=== PATIENT | female | born 1990 | race Caucasian/White ===

== ENCOUNTER 2020-05-20 12:16 | Emergency (ER) | payer BC, SELFPAY ==
--- NOTE | ~2020-05-20 | US_ITS ---
US OB <=14 wk fetus w TV DATE: 05/20/2020 17:21 INDICATION: Nausea and vomiting. 6 week gravid patient. TECHNIQUE: Real-time imaging via transabdominal and transvaginal approaches COMPARISON: None FINDINGS: The uterus measures 8.3 cm height, 4.6 cm AP and 5.5 cm transverse dimension. An intrauteri ne normally shaped gestational sac is identified. [place]-rump length measurement of 1.16 cm is consistent with estimated gestational age of 7 weeks 2 da ys +/- 5 days; SUE by crown-rump length would be 01/04/2021, compared to 01/08/2021 by LMP. heart rate of 154 bpm. The right ovary measures 2.5 x 1.6 x 2.6 cm. The left ovary measures 2.3 x 1.8 x 2.3 cm. IMPRESSION: Estimated gestational age of 7 weeks 2 days +/- 5 days; SUE is 01/04/2021 Reviewed, dictated and finalized at [facility] Reviewed, dictated and finalized at [facility].
[2020-05-20 12:21] VITALS: BP 131/60; PULSE 86; RESP 16; TEMP 37; O2SAT 98
[2020-05-20 12:39] LABS: Basophils Percent Auto 0.2 % (0.2-1.2); Eosinophils Absolute Auto 0.1 K/mm3 (0-0.3); Eosinophils Percent Auto 1.1 % (0-4.4); Hematocrit 40.3 % (37.0-47.0); Hemoglobin 13.5 g/dL (12.0-15.0); Immature Granulocyte Absolute 0.04 K/mm3 (0.00-0.031); Immature Granulocyte Percent A 0.4 % (0-0.5); Lymphocytes Absolute Auto 2.45 K/mm3 (0.9-3.2); Lymphocytes Percent Auto 23.4 % (18.3-44.2); Mean Corpuscular HGB Conc 33.5 g/dl (32-36); Mean Corpuscular Volume 89.6 fl (80-100); Mean Platelet Volume 9.9 fl (7.4-10.4); Monocytes Absolute Auto 0.6 K/mm3 (0.1-0.6); Monocytes Percent Auto 5.6 % (2.6-8.5); Neutrophils Absolute Auto 7.3 K/mm3 (1.3-6.7); Neutrophils Percent Auto 69.3 % (45.5-73.1); Platelet Count Result 288 k/mm3 (150-375); Red Cell Distribution Width 11.9 % (11.5-14.5); White Blood Count 10.5 K/mm3 (4.5-10.0)
[2020-05-20] MEDS: diphenhydrAMINE HCl INJ 50 MG/ML VIAL 25 MG IV PUSH (12:44)
[2020-05-20] MEDS: SODIUM CHLORIDE 0.9% IV 1,000 ML 999 ML IV CONT ×2 (12:44→14:03)
[2020-05-20] MEDS: METOCLOPRAMIDE HCL INJ 10 MG/2 ML VIAL IV PUSH (12:44)
[2020-05-20 12:51] LABS: Alanine Aminotransferase 16 U/L (4-35); Albumin Level 4.3 g/dL (3.5-5.1); Alkaline Phosphatase 52 U/L (38-126); Anion Gap 9 mmol/L (8-16); Aspartate Amino Transferase 22 U/L (14-36); Bilirubin,Total 0.5 mg/dL (0.2-1.3); Blood Urea Nitrogen 12 mg/dL (7-17); Calcium 8.8 mg/dL (8.4-10.2); Carbon Dioxide 22 mmol/L (22-30); Chloride 106 mmol/L (98-107); Estimated CRCL calculation 101 ml/min; Estimated Glomerular Filt Rate > 60; Glucose 85 mg/dL (65-105); Lipase 256 U/L (23-300); Potassium 3.9 mmol/L (3.4-5.0); Sodium 137 mmol/L (137-145)
--- NOTE | 2020-05-20 13:11 | ED.NAVMDI ---
HPI - Nausea/Vomiting/Diarrhea General Chief complaint: Nausea/Vomiting/Diarrhea Stated complaint: 6 wks , vomiting Time Seen by Provider: 05/20/20 12:27 Source: patient Mode of arrival: ambulatory Limitations: no limitations History of Present Illness HPI Narrative: This is a 29-year-old G1, P0, about 6 weeks by LMP who presents to the emergency department for nausea and vomiting. Reports over the last couple of days she has not been able to keep much down. Reports she has been trying huma lozenges with little relief. Reports she has an appointment to see Dr. Barbosa in a couple of weeks. She has not had an ultrasound yet this . Denies fever, abdominal pain, dysuria, pelvic cramping, or vaginal bleeding. Related Data Home Medications Medication Instructions Recorded Confirmed clonazepam 0.5 mg PO BID 05/20/20 Allergies Allergy/AdvReac Type Severity Reaction Status Date / Time No Known Allergies Allergy Mild Verified 05/20/20 12:23 Review of Systems Review of Systems: Narrative: CONSTITUTIONAL: Denies fever GASTROINTESTINAL: Reports nausea and vomiting. Denies abdominal pain GENITOURINARY: Denies dysuria or hematuria. All systems reviewed & are unremarkable except as noted in HPI and below PMFSH Social History Social History (Updated 05/20/20 @ 13:12 by Karina Mares PA-C) Smoking status: Never smoker Substance use: never Exam Narrative: Exam Narrative: GENERAL: Well-appearing, well-nourished, and in no acute distress. HEAD: Normocephalic, atraumatic. EYES: EOMI. CHEST: Clear to auscultation. No respiratory distress. No wheezes rales or rhonchi HEART: Regular rate and rhythm. No murmur heard. Normal peripheral pulses. ABDOMEN: Soft, nontender, nondistended, normal active bowel sounds. EXTREMITIES: Normal range of motion. No edema. SKIN: Warm, dry, no rash. NEURO: No focal deficits. Alert and oriented x3. PSYCH: Normal mood and affect Course Consultations Consultation #1: Spoke with Dr. Melendez about patient and work-up. Patient will be instructed on Unisom and vitamin B6 and given Reglan as needed for nausea. She is to follow-up at her scheduled appointment. Date: 05/20/20 Time: 18:07 Vital Signs Vital signs: Vital Signs Temperature 98.6 F 05/20/20 12:21 Pulse Rate 86 05/20/20 12:21 Respiratory Rate 16 05/20/20 12:21 Blood Pressure 131/60 05/20/20 12:21 Pulse Oximetry 98 05/20/20 12:21 Temperature 98.6 F 05/20/20 12:21 Pulse Rate 86 05/20/20 12:21 Respiratory Rate 16 05/20/20 12:21 Blood Pressure 131/60 05/20/20 12:21 Pulse Oximetry 98 05/20/20 12:21 MDM - Nausea/Vomiting/Diarrhea MDM Narrative Medical decision making narrative: Patient presents to the emergency department for nausea and vomiting and first trimester . She is afebrile and nontoxic-appearing. Denies any abdominal pain or pelvic cramping. Denies any vaginal bleeding. CBC with mild leukocytosis to 10.5. Metabolic panel without concerning findings. Lipase is normal. UA with 4-6 white blood cells and 1+ bacteria, also with moderate squamous epithelial cells. Patient is asymptomatic. This will be sent for culture. Obstetrics ultrasound shows positive IUP with estimated gestational age of 7 weeks and [address] Melendez about patient and work-up. Patient will be instructed on Unisom and vitamin B6 and given Reglan as needed for nausea. She is to follow-up at her scheduled appointment. Patient is stable and felt appropriate for further outpatient evaluation. She was given warnings to return to ER Lab Data Attestation: I reviewed the patient's lab results. Result diagrams: 05/20/20 12:32 05/20/20 12:32 Labs: Lab Results 05/20/20 05/20/20 05/20/20 Range/Units 12:32 12:32 12:32 WBC 10.5 H (4.5-10.0) K/mm3 RBC 4.50 (4.2-5.4) M/mm3 Hgb 13.5 (12.0-15.0) g/dL Hct 40.3 (37.0-47.0) % MCV 89.6 (8
--- NOTE | 2020-05-20 13:49 | PC.NURSE ---
pt states is feeling some better. remains unable to urinate.
[2020-05-20 14:21] LABS: Add Urine Microscopic? YES; Appearance Urine Cloudy (Clear); Bacteria Urine 1+ /hpf; Bilirubin Urine Negative (Negative); Blood Urine Negative (Negative); Color Urine Yellow (Yellow); Glucose Urine UA Negative (Negative); Ketones Urine 2+ mg/dL (Negative); Leukocyte Esterase Ur Negative LEU/UL (Negative); Mucus Urine Heavy /lpf; Nitrate Urine Negative (Negative); Protein Urine Negative (Negative); Specific Grav Ur 1.024 (1.001-1.035); Squamous Epithelial Cell Urine Moderate /hpf (Few); Urobilinogen Urine Negative mg/dL (<2.0)
--- NOTE | 2020-05-20 15:24 | PC.NURSE ---
ua specimen collected. 2nd liter ns hung and infusing without difficulty. family remains at bedside.
--- NOTE | 2020-05-20 16:20 | PC.NURSE ---
pt states nausea is returning. additional study ordered.
--- NOTE | 2020-05-20 16:39 | PC.NURSE ---
Called lab to add on UC
--- NOTE | 2020-05-20 18:09 | PC.NURSE ---
all results back. waiting further orders.
== END 2020-05-20 18:38 | disposition home or self-care (01) ==
PROVIDERS: Physician Assistant; Emergency Provider Emergency Medicine; PCP Physician Assistant
DX: O21.9 Vomiting of pregnancy, unspecified (principal); Z3A.01 Less than 8 weeks gestation of pregnancy
CPT/HCPCS: 36415; 76801; 76817; 80053; 81001; 83690; 84702; 85025; 87086; 96361; 96374; 96375; 99284; J1200; J2765; J7030

== ENCOUNTER → 2020-06-14 07:55 | Outpatient (CLI) | payer BC, SELFPAY ==
--- NOTE | ~2020-06-14 | US_ITS ---
EXAMINATION: US OB <= 14 weeks fetus DATE: 06/14/2020 08:13 INDICATION: Establish dating of during first trimester TECHNIQUE: Real-time pelvic ultrasound utilizing both a transvaginal and transabdominal probe was pe rformed. The interpreting radiologist was not present for the study. COMPARISON: 05/20/2020 FINDINGS: The uterus measures 10.9 x 6.2 x 8.9 cm. There is an intrauterine gestational sac. A single fetus is identified. The crown rump length measures 4.0 cm, which is concordant within two days of previously estimated gestational age of 11 weeks and 1 days based on earliest ultrasound [facility]. heart motion is identified measuring 168 beats per minute (bpm) by M-mode Doppler. The bilateral ovaries are not visualized. There is no free fluid in the pelvis. IMPRESSION: 1. Single living fetus with heart rate of 168 bpm. 2. [place]-rump length of 4.0 cm which is concordant with previously estimated gestational age of 11 we eks 1 day(s) with ultrasound estimated date of delivery (SUE) of 01/02/2021. Reviewed, dictated and finalized at location [facility]. IMPRESSION: 1. Single living fetus with heart rate of 168 bpm. 2. [place]-rump length of 4.0 cm which is concordant with previously estimated ge stational age of 11 weeks 1 day(s) with ultrasound estimated date of delivery ( SUE) of 01/02/2021.
== END ==
PROVIDERS: Visit Provider Nurse Practitioner
DX: Z36.87 Encounter for antenatal screening for uncertain dates (principal); Z3A.11 11 weeks gestation of pregnancy
CPT/HCPCS: 76801

== ENCOUNTER → 2020-08-15 14:46 | Outpatient (CLI) | payer BC, SELFPAY ==
--- NOTE | ~2020-08-15 | US_ITS ---
EXAMINATION: US OB >= 14 weeks Fetus DATE: 08/15/2020 15:36 INDICATION: Assess anatomy during second trimester . TECHNIQUE: Multiple obstetric sonographic images performed. FINDINGS: There is a single living fetus in vertex presentation. The placenta is anterior with caudal margin 3 .2 cm from the cervical os. Amniotic fluid volume is subjectively normal. heart rate of 153 be ats per minute. The following anatomy was identified as normal: Ventricles, choroid plexus, falx and cava septum pellucidum Cerebellum and cisterna magna Nuchal fold Upper lip Spine Heart Diaphragm Stomach Kidneys Bladder 3 vessel cord and cord insertion Bilateral upper and lower extremities including hands and feet The following biometric data were obtained: BPD: 4.8 cm -> 20 weeks 3 days Head circumference: 17.4 cm -> 20 weeks 0 days Abdominal circumference: 14.7 cm -> 20 weeks 0 days Femur length: 3.1 cm -> 19 weeks 4 days These measurements are concordant. Head circumference to abdominal circumference ratio: 1.18 (normal range 1.08-1.25). Estimated weight: 317 g (+/-) 48 g. or 11 oz. (+/-) 2 oz. IMPRESSION: 1. Single living fetus with vertex presentation with heart rate of 153 bpm. 2. Estimated weight is 53rd percentile by Hadlock criteria when 01/04/2021 is used as the SUE. Please correlate with clinical information or earlier ultrasounds for most accurate SUE. 3. Normal survey. Reviewed, dictated and finalized at location [facility]. [facility]KER [facility] IMPRESSION: 1. Single living fetus with vertex presentation with heart rate of 153 b pm. 2. Estimated weight is 53rd percentile by Hadlock criteria when is used as the SUE. Please correlate with clinical information or earlier ult rasounds for most accurate SUE. 3. Normal survey.
== END ==
PROVIDERS: PCP Physician Assistant; Visit Provider Obstetrics & Gynecology Gynecology
DX: Z34.92 Encounter for supervision of normal pregnancy, unspecified, second trimester (principal); Z3A.20 20 weeks gestation of pregnancy
CPT/HCPCS: 76805

== ENCOUNTER → 2020-11-29 11:19 | Outpatient (CLI) | payer BC, SELFPAY ==
--- NOTE | ~2020-11-29 | US_ITS ---
US OB follow up DATE: 11/29/2020 11:43 INDICATION: Size greater than dates TECHNIQUE: Real-time imaging via transabdominal approach. Doppler analysis. COMPARISON: 09/04/2020 obstetrical ultrasound FINDINGS: Live single intrauterine gestation, fetus in breech presentation. movement is demonst rated. Anterior placenta, lower margin 10.7 cm above the cervix. Subjectively normal amount and a fluid. Amniotic fluid index measures 15.7 cm, between 5th percentile 8.1 cm and 95th percentile 24.8 cm. Biparietal diameter 8.87 cm; 35 weeks 6 days Head circumference 32.19 cm; 36 weeks 2 days Abdominal circumference 31.1 cm; 35 weeks Femur length 6.69 cm; 34 weeks 3 days Composite age by Keller formula based on the current measurements would be 35 weeks 3 days +/- 2 we eks 3 days, with SUE of 12/31/2020, compared to 01/04/2021 by LMP. Estimated weight is 2592 +/- 388.8 g. Estimated weight-GP: 53.4% Femur length/biparietal diameter 75.40, within normal range of 71.0-87.0 Head circumference/abdominal airframe and powerplant mechanic was 1.03, within normal range of 0.93-1.10 Femur length/abdominal circumference 21.49, within normal range of 20.00-24.00 Femur length/head circumference 20.78, within normal range of 20.10-22.21 IMPRESSION: Amniotic fluid index: 15.7 cm Composite age by Keller formula based on the current measurements would be 35 weeks 3 days +/- 2 we eks 3 days, with USE of 12/31/2020, compared to 01/04/2021 by LMP. Estimated weight is 2592 +/- 388.8 g. Reviewed, dictated and finalized at [facility]. Reviewed, dictated and finalized at [facility]. IMPRESSION: Amniotic fluid index: 15.7 cm Composite age by Keller formula based on the current measurements would be 35 weeks 3 days +/- 2 weeks 3 days, with SUE of 12/31/2020, compared to 01/04/2021 by LMP. Estimated weight is 2592 +/- 388.8 g.
== END ==
PROVIDERS: Visit Provider Obstetrics & Gynecology Gynecology
DX: O36.5930 Maternal care for other known or suspected poor fetal growth, third trimester, not applicable or unspecified (principal); Z3A.35 35 weeks gestation of pregnancy
CPT/HCPCS: 76816

== ENCOUNTER 2020-12-12 07:32 | Outpatient (CLI) | payer BC, SELFPAY ==
[2020-12-12] VITALS (17 sets, daily range): BP systolic 121–122; BP diastolic 80–82; PULSE 92–118; O2SAT 96–99
[2020-12-12] MEDS: TERBUTALINE SULFATE 1 MG/ML VIAL 0.25 MG SUB-Q (08:07)
--- NOTE | 2020-12-12 08:20 | PM.OP ---
Procedure Note - Brief Procedure Note - Brief Date of procedure: 12/12/20 Pre-op diagnosis: External version breech Post-op diagnosis: same Procedure performed: failed external version Description of procedure: NST reactive. Under u/s guidance, attempted external cephalic version done. head in RUQ and breech deep into pelvis. No movement of breech out of pelvis. Attempted clockwise and counterclockwise with no movement of head or breech. Procedure determined to be futile and stopped. Will schedule csection for 39 wks. NST before DC. Anesthesia: none Surgeon: Marleny Barbosa MD Estimated blood loss (mL): 0 Drains: No Packing: No Pathology: none sent Complications: No immediate complications Condition: stable Disposition: floor
--- NOTE | 2020-12-12 09:06 | PC.NURSE ---
Dr. Barbosa updated with NST following external version, including variable deceleration. Ok to discharge patient to home.
== END 2020-12-12 09:18 | disposition home or self-care (01) ==
LOC: ANHOBOP 07:38 → ANHOBPP 07:40
PROVIDERS: PCP Physician Assistant; Visit Provider Obstetrics & Gynecology Gynecology
DX: O32.1XX0 Maternal care for breech presentation, not applicable or unspecified (principal)
CPT/HCPCS: 59412; 99199; J3105

== ENCOUNTER 2020-12-30 07:50 | Inpatient (IN) | payer BC, SELFPAY ==
--- NOTE | 2020-12-20 13:10 | PC.NURSE ---
VERIFIED WITH OR SCHEDULE AND PATIENT--C/S ON 01/01/21 AT 1200 PATIENT GIVEN REQUISITION FOR LAB DRAW ON 12/31/20
[2020-12-30] VITALS (51 sets, daily range): BP systolic 86–121; BP diastolic 50–70; PULSE 59–92; RESP 12–19; TEMP 36.2–37.1; O2SAT 96–100; BMI 31.4
--- NOTE | 2020-12-30 08:23 | WPDHPUPDATE1 ---
History and Physical Update Update Date/Time: 12/30/20 08:23 History and Physical has been reviewed, including an updated exam of the patient. There are NO changes in the patient's condition. Risks, benefits, and alternatives have been discussed and questions answered. Patient agrees to proceed with procedure.
--- NOTE | 2020-12-30 08:23 | PM.IMHP ---
H&P: HPI History of Present Illness Date/Time: 12/30/20 08:23 Chief Complaint: labor Narrative: 30 yo G1 at 38 5/7 wks here with labor. Known breech was verified with bedside u/s. Prior attempted version was unsuccessful. labs O+; Rubella nonimmune; RPR -; HBSAg -; HIV -; GBS -. Plan to proceed with primary csection. 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 Surgical History Surgical History (Updated 12/30/20 @ 08:30 by Marleny Barbosa MD) Hx of shoulder surgery age 10 Family History Family History (Updated 12/20/20 @ 12:38 by Anil Smalls RN) Grandparent Cancer Diabetes mellitus Social History Social History (Updated 05/20/20 @ 13:12 by Karina Mares PA-C) Smoking status: Never smoker Substance use: never Spiritual care concerns: No Meds Home Medications and Allergies Home Medications Medication Instructions Recorded Confirmed Type clonazepam 0.5 mg PO BID 05/20/20 12/12/20 History Vitamin 1 tablet PO DAILY 12/12/20 12/12/20 History Allergies Allergy/AdvReac Type Severity Reaction Status Date / Time No Known Allergies Allergy Mild Verified 12/20/20 12:34 Vital Signs Vital Signs - 24 hr 12/30/20 08:21 Pulse Oximetry 97 Exam Const: General: No comfortable (breathing through contractions) Resp: Effort & Inspection: normal respiratory effort Cardio: Rate: regular rate Rhythm: regular rhythm GI: GI Palp: No abdominal tenderness and Yes Other GI palpation findings present (fundal height 38 cm) : Manual OB Exam: dilated 4 cm Assessment and Plan Assessment and plan (1) Breech presentation: Code(s): O32.1XX0 - Maternal care for breech presentation, not applicable or unspecified Status: Acute (2) Active labor: Status: Acute (3) 38 weeks gestation of : Code(s): Z3A.38 - 38 weeks gestation of Status: Acute
[2020-12-30 08:31] LABS: Basophils Percent Auto 0.2 % (0.2-1.2); Eosinophils Percent Auto 0.1 % (0-4.4); Hematocrit 33.8 % (37.0-47.0); Hemoglobin 10.8 g/dL (12.0-15.0); Immature Granulocyte Absolute 0.17 K/mm3 (0.00-0.031); Immature Granulocyte Percent A 0.9 % (0-0.5); Lymphocytes Absolute Auto 1.77 K/mm3 (0.9-3.2); Lymphocytes Percent Auto 9.8 % (18.3-44.2); Mean Corpuscular Hemoglobin 27.3 pg (26-34); Mean Corpuscular Volume 85.6 fl (80-100); Mean Platelet Volume 10.4 fl (7.4-10.4); Monocytes Absolute Auto 0.8 K/mm3 (0.1-0.6); Monocytes Percent Auto 4.4 % (2.6-8.5); Neutrophils Absolute Auto 15.3 K/mm3 (1.3-6.7); Neutrophils Percent Auto 84.6 % (45.5-73.1); Platelet Count Result 284 k/mm3 (150-375); Red Blood Count 3.95 M/mm3 (4.2-5.4); Red Cell Distribution Width 12.7 % (11.5-14.5); White Blood Count 18.1 K/mm3 (4.5-10.0)
--- NOTE | 2020-12-30 08:33 | WPDANESEPPF ---
Anes - Initial Pre Proc Eval Procedure: Operation Date: 12/30/20 09:00 Proposed Procedures p Primary Section - Marleny Barbosa MD Date/Time: 12/30/20 08:33 Surgeon: Marleny Barbosa MD Pre Op Diagnosis: Bleeding Patient Data Age: 30 Gender: F Height: 1.63 m Weight: 83 kg Last Vital Signs Pulse 83 12/30/20 08:31 BP 121/70 12/30/20 08:31 Pulse Ox 100 12/30/20 08:31 Allergies Allergy/AdvReac Type Severity Reaction Status Date / Time No Known Allergies Allergy Mild Verified 12/20/20 12:34 Home Medications Medication Instructions Recorded Confirmed Type clonazepam 0.5 mg PO BID 05/20/20 12/12/20 History Vitamin 1 tablet PO DAILY 12/12/20 12/12/20 History Laboratory Tests 12/30/20 12/30/20 08:23 08:23 WBC 18.1 K/mm3 H K/mm3 (4.5-10.0) RBC 3.95 M/mm3 L M/mm3 (4.2-5.4) Hgb 10.8 g/dL L g/dL (12.0-15.0) Hct 33.8 % L % (37.0-47.0) MCV 85.6 fl fl (80-100) MCH 27.3 pg pg (26-34) MCHC 32.0 g/dl g/dl (32-36) RDW 12.7 % % (11.5-14.5) Plt Count 284 k/mm3 k/mm3 (150-375) MPV 10.4 fl fl (7.4-10.4) Immature Gran % (Auto) 0.9 % H % (0-0.5) Neut % (Auto) 84.6 % H % (45.5-73.1) Lymph % (Auto) 9.8 % L % (18.3-44.2) [place] % (Auto) 4.4 % % (2.6-8.5) Eos % (Auto) 0.1 % % (0-4.4) Baso % (Auto) 0.2 % % (0.2-1.2) Lymph # (Auto) 1.77 K/mm3 K/mm3 (0.9-3.2) [place] # (Auto) 0.8 K/mm3 H K/mm3 (0.1-0.6) Eos # (Auto) 0.0 K/mm3 K/mm3 (0-0.3) Baso # (Auto) 0.0 K/mm3 K/mm3 (0.0-0.1) Abs Immat Gran (auto) 0.17 K/mm3 H K/mm3 (0.00-0.031) Absolute Neuts (auto) 15.3 K/mm3 H K/mm3 (1.3-6.7) Absolute Nucleated RBC 0.0 K/mm3 K/mm3 (0.0-0.012) Nucleated RBC % 0.0 % % (0.0-0.2) RPR Pending Patient hx anesthesia problems: none Family hx anesthesia problems: none [facility] Past Medical History Medical History (Updated 12/30/20 @ 08:32 by Marleny Barbosa MD) Hyperekplexia Skull fracture x 3 hx subdural hematoma and subarachnoid hemorrhage no residual deficits Surgical History Surgical History (Updated 12/30/20 @ 08:30 by Marleny Barbosa MD) Hx of shoulder surgery age 10 Family History Family History (Updated 12/20/20 @ 12:38 by Anil Smalls RN) Grandparent Cancer Diabetes mellitus Social History Social History (Updated 05/20/20 @ 13:12 by Karina Mares PA-C) Smoking status: Never smoker Substance use: never Spiritual care concerns: No Anes - Eval Final PreProcedure Day of Procedure 12/30/20 08:33 Patient weight: obese Heart: regular rate and rhythm Lungs: clear to auscultation and normal air movement Airway: Mallampati scale class II Neurological: alert and oriented Last oral intake: >/= 8 hours ASA classification: II Emergent: no Anesthetic plan: proceed Anesthesia type and monitoring: regional spinal Informed Consent: The patient's anesthetic plan and its attendant risks and benefits were discussed with the patient/family/POA. Questions were solicited and answers provided to the satisfaction of the patient/family/POA.
--- NOTE | 2020-12-30 08:34 | LDADM ---
This patient, Marquita Orellana, was admitted to Labor/Delivery/Recovery 120 on 12/30/20 at 07:50. Plans for labor, pain management and were discussed with patient. Patient/family oriented to hospital policies and general routines including ID bracelet, bed and alarms, visiting hours, pain management, procedures, bathroom and other care routines, personal items, smoking policy, room service/diet and guest tray routines, security routines, and visiting hours. Patient/Family are encouraged to report perceived risks to care and to ask questions if they do not understand what they are told or what they should do. See OBIX for further documentation.
--- NOTE | 2020-12-30 09:27 | PM.PROC ---
Procedure Note - Detailed Date of procedure: 12/30/20 Pre-op diagnosis: Bleeding Labor 38 5/7 wks Breech Post-op diagnosis: same Procedure performed: primary LTCS Description of procedure: The patient was taken to the operating room and placed under spinal anesthesia in the dorsal supine position with a leftward tilt. The patient was prepped and draped in usual sterile fashion. Once anesthesia was deemed adequate a Pfannenstiel skin incision was made with a scalpel and carried down to the fascia which was nicked in the midline. Fascial incision is extended laterally using Jalloh scissors. Ochsner is used to tent the fascia which was then dissected off using sharp and blunt dissection. This the rectus muscles are in the midline the peritoneum was tented and entered with Metzenbaum scissors. The incision was extended with blunt traction. The bladder blade is placed and the vesicouterine peritoneum grasped with a Peon. The peritoneum was incised with Metzenbaum sent extended laterally the bladder flap was created digitally the lower uterine segment was incised in a transverse fashion with the scalpel. The incision was extended with blunt traction. The 's breech was deep in the pelvis and had to be brought up into the incision. The breech was delivered and then the merchandising assistant applied fundal pressure and the was delivered to the scapula. The was rotated and the right arm delivered spontaneously the was rotated the left arm is splinted and delivered. The infant is extended on the abdomen and the head delivered. The cord was clamped and cut the infant handed to the waiting nursery nurse. The placenta is removed using manual traction. The uterus is cleared of all clots and debris and exteriorized. The uterine incision was closed using 0 Monocryl in a running locked fashion. Same suture was used to imbricate. Good hemostasis is noted. The cul-de-sac is irrigated and the uterus is returned to the abdomen. The gutters are irrigated. The incision was again inspected and noted to be hemostatic. The fascia was then closed using 0 Vicryl in a running fashion. The subcuticular tissues are irrigated made hemostatic using Bovie cautery. The skin incision is closed using 4 0 Vicryl in a subcuticular fashion. Dermaflex was placed over the incision. Sponge, instrument, and needle counts are correct per the OR staff. Patient was taken to recovery in stable condition. Anesthesia: spinal Surgeon: Marleny Barbosa MD Estimated blood loss (mL): 350 Drains: Yes (caldera) Packing: No Pathology: none sent Complications: No immediate complications Condition: stable Disposition: PACU Findings: female with breech deep in pelvis; Apgars 9/9 weighing6#11oz; normal appearing tubes, ovaries, and uterus
--- NOTE | 2020-12-30 09:32 | PM.OBDSVD ---
DS: Admitting Diagnosis Admitting Diagnosis Admitting Diagnosis: labor 38 5/7 wks; breech DS: Discharge Diagnosis Discharge Diagnosis (1) 38 weeks gestation of : Code(s): Z3A.38 - 38 weeks gestation of Status: Acute (2) Active labor: Status: Acute (3) Breech presentation: Code(s): O32.1XX0 - Maternal care for breech presentation, not applicable or unspecified Status: Acute OB - DS: Summary OB Procedures : Ultrasound and External version (failed) OB Procedures Intrapartum: low cervical, transverse OB Procedures: : None Peripartum Data Delivery Method: Section Procedures: Procedures Operation Date: 12/30/20 09:00 <No data on this case meets the specified criteria> complications: none Status at Discharge Functional status at discharge: independent ambulation Overall status at discharge: patient is progressing back to baseline Time Spent with Patient Time attestation: Total time spent providing and/or coordinating discharge services: DS: Data Data Completed and Pending Labs on day of discharge: Labs from last 24 hours 12/30/20 12/30/20 08:23 08:23 WBC 18.1 H RBC 3.95 L Hgb 10.8 L Hct 33.8 L MCV 85.6 MCH 27.3 MCHC 32.0 RDW 12.7 Plt Count 284 MPV 10.4 Immature Gran % (Auto) 0.9 H Neut % (Auto) 84.6 H Lymph % (Auto) 9.8 L [place] % (Auto) 4.4 Eos % (Auto) 0.1 Baso % (Auto) 0.2 Lymph # (Auto) 1.77 [place] # (Auto) 0.8 H Eos # (Auto) 0.0 Baso # (Auto) 0.0 Abs Immat Gran (auto) 0.17 H Absolute Neuts (auto) 15.3 H Absolute Nucleated RBC 0.0 Nucleated RBC % 0.0 RPR Pending Discharge Plan Discharge Attending physician on discharge: Marleny Barbosa Discharging Clinician: Marleny Barbosa Anticipated Discharge Date/Time: 01/02/21 09:33 Patient Disposition: Home, Self-Care Activity: may shower, may drive after 2 weeks and pelvic rest Diet: regular Wound Care Instructions: incision open to air Discharge Instructions: Education: Mom and Baby Guide Given to: Mother Follow-Up: Call your delivering provider's office for an appointment to be seen in: 1 Week Mom and baby should come to the [facility] for the follow-up appointment. Appointment Date/Time:Tuesday, January 05, 2021 at 11:00 am What to expect at your follow-up visit: Blood Pressure Check Physical Assessment Call [phone] if you are unable to keep your appointment time. BREAST CARE: * Wear a snug supportive bra. * For engorgement discomfort: Bottle Feeding: * May apply ice packs EPISIOTOMY/PERINEAL CARE: * Until bleeding stops, use your matilda bottle after urinating * Change your pad frequently throughout the day * You may take sitz baths several times a day (fill your bathtub with warm water and soak for 20 minutes.) Do NOT bathe in the water * No tub baths until seen by your physician - You may shower ACTIVITY: * Rest as much as possible. * Do not exercise or lift anything heavier than your baby (such as laundry or other children.) * Avoid stairs or driving as much as possible. * Do not put anything into the vagina. No douching, tampons, or sexual activity until seen by physician. NOTIFY PHYSICIAN IF YOU HAVE ANY QUESTIONS OR IF ANY OF THE FOLLOWING SYMPTOMS OCCUR: * If your incision becomes red, swollen, or more painful than what you have experienced in the hospital. * If your vaginal bleeding becomes foul smelling. * If your vaginal bleeding becomes more heavy than a period or if your bleeding changes from pink to bright red. However, you may pass an occasional walnut-sized clot once or twice for the first week . * If you experience a sharp, shooting pain in your calves. * If you discover a hard, reddened area on your breast or if you experience flu-like symptoms. DIET: * Eat regular, well
[2020-12-30] MEDS: OXYTOCIN 30 UNITS/NS 500 ML 30 UNITS/500 ML BAG 125 UNITS IV CONT (10:30)
[2020-12-30] MEDS: LORATADINE 10 MG TABLET PO (10:34)
[2020-12-30] MEDS: KETOROLAC 30 MG/ML VIAL (*BKC) IV PUSH (11:11)
--- NOTE | 2020-12-30 11:50 | PC.NURSE ---
Patient transferred to post room #1150 via stretcher. Support person present. Oriented to unit, room, information board, rooming in, admission packet and security measures. Patient verbalizes understanding.
[2020-12-30] MEDS: DEXTROSE 5%/0.45% SOD CHL 1,000 ML 125 ML IV CONT (15:12)
[2020-12-30] MEDS: clonazePAM (*CRX) 0.5 MG TABLET PO (20:33)
[2020-12-30] MEDS: IBUPROFEN 600 MG TABLET PO (20:38)
[2020-12-30] MEDS: HYDROcodone/acetaminophen (*CRX) 5-325 MG TABLET 1 TAB PO (20:39)
[2020-12-31 05:40] VITALS: BP 109/55; PULSE 90; RESP 16; TEMP 36.3; O2SAT 100
[2020-12-31] MEDS: IBUPROFEN 600 MG TABLET PO ×3 (05:43→19:51)
[2020-12-31] MEDS: HYDROcodone/acetaminophen (*CRX) 5-325 MG TABLET 1 TAB PO ×4 (05:43→19:51)
[2020-12-31 06:05] LABS: Basophils Percent Auto 0.1 % (0.2-1.2); Eosinophils Absolute Auto 0.1 K/mm3 (0-0.3); Eosinophils Percent Auto 0.4 % (0-4.4); Hematocrit 27.1 % (37.0-47.0); Hemoglobin 8.4 g/dL (12.0-15.0); Immature Granulocyte Absolute 0.18 K/mm3 (0.00-0.031); Immature Granulocyte Percent A 1.3 % (0-0.5); Lymphocytes Absolute Auto 2.29 K/mm3 (0.9-3.2); Lymphocytes Percent Auto 16.6 % (18.3-44.2); Mean Corpuscular Volume 87.1 fl (80-100); Mean Platelet Volume 10.4 fl (7.4-10.4); Monocytes Percent Auto 7.4 % (2.6-8.5); Neutrophils Absolute Auto 10.3 K/mm3 (1.3-6.7); Neutrophils Percent Auto 74.2 % (45.5-73.1); Platelet Count Result 232 k/mm3 (150-375); Red Blood Count 3.11 M/mm3 (4.2-5.4); Red Cell Distribution Width 12.7 % (11.5-14.5); White Blood Count 13.8 K/mm3 (4.5-10.0)
[2020-12-31 07:25] LABS: Rapid Plasma Reagin Non-Reactive (NonReactive)
[2020-12-31 07:35] VITALS: BP 106/66; PULSE 75; RESP 18; TEMP 36.8; O2SAT 100
--- NOTE | 2020-12-31 08:52 | WPDANLDPN2 ---
Anes-Prog Note L&D Date/Time: 12/31/20 08:52 Comfortable throughout: section Neuraxial method: spinal Epidural/Spinal procedure site: clean & non-tender Neuro status: Neuro function grossly intact. Cardiovascular status: normal Vital Signs: Last Vital Signs Temp 36.3 C L 12/31/20 05:40 Pulse 90 12/31/20 05:40 Resp 16 12/31/20 05:40 BP 109/55 L 12/31/20 05:40 Pulse Ox 100 12/31/20 05:40 Pain score (VAS): no c/o pain I/O: Intake & Output 12/30/20 12/31/20 12/31/20 23:59 07:59 15:59 Intake Total 1700 400 Output Total 1050 1800 Balance 650 -1400 Post-procedural complaints: none Patient feedback: Patient satisfied with anesthetic care.
--- NOTE | 2020-12-31 08:53 | WPDANLDNPN2 ---
Anes-Prog Note L&D-Neuraxial Date/Time: 12/31/20 08:53 Neuraxial medications: intrathecal PF morphine Opiod-related complaints: pruritis Patient feedback: Patient satisfied with post-operative pain management.
[2020-12-31] MEDS: DOCUSATE SODIUM 100 MG CAPSULE PO (09:25)
[2020-12-31] MEDS: MULTIVIT/MIN/PREN/FOL AC/IRON TABLET 1 TAB PO (09:25)
[2020-12-31] MEDS: POLYSACCHARIDE IRON COMPLEX 150 MG CAPSULE PO (09:25)
[2020-12-31] MEDS: clonazePAM (*CRX) 0.5 MG TABLET PO ×2 (09:25→20:27)
[2020-12-31] MEDS: LORATADINE 10 MG TABLET PO (09:26)
[2020-12-31] MEDS: SIMETHICONE 80 MG TAB.CHEW PO ×2 (09:28→13:21)
--- NOTE | 2020-12-31 10:51 | PC.NURSE ---
Addendum entered by Zoran Bird RN 12/31/20 10:53: actual note occurred at 0800 Original Note: PT introductions made and plan of care discussed per post op c section, pain management, bottle feeding, daily care activities. PT received instructions per one to one discussion and mom baby care guide. Pt and spouse both recipients of education through out the shift. PT verbalized understanding of such care.
[2020-12-31 19:45] VITALS: BP 120/71; PULSE 116; RESP 16; TEMP 37.2; O2SAT 100
[2021-01-01] MEDS: IBUPROFEN 600 MG TABLET PO ×3 (02:54→17:26)
[2021-01-01] MEDS: SIMETHICONE 80 MG TAB.CHEW PO ×4 (02:54→21:46)
[2021-01-01] MEDS: HYDROcodone/acetaminophen (*CRX) 5-325 MG TABLET 1 TAB PO ×6 (02:54→21:46)
--- NOTE | 2021-01-01 07:38 | PM.OBPNVD ---
OB - PN: Subj Subjective Date/time seen: 01/01/21 07:38 Patient comments: no complaints and pain well controlled baby status: bottle feeding well OB - PN: Obj Data Labs CBC & Chem 7: 12/31/20 05:48 OB - PN A/P Plan day: 2 Plan: routine care Time Spent With Patient Time: Total time spent is greater than 50% in coordination of care (as documented) at patient's floor/unit and/or counseling patient: Exam Narrative: Exam Narrative: inc c/d/i : Bimanual exam- vagina & uterus: other (Uterus firm, nt @U)
[2021-01-01 07:45] VITALS: BP 111/68; PULSE 99; RESP 16; TEMP 37.3; O2SAT 100
[2021-01-01] MEDS: MULTIVIT/MIN/PREN/FOL AC/IRON TABLET 1 TAB PO (07:47)
[2021-01-01] MEDS: DOCUSATE SODIUM 100 MG CAPSULE PO ×2 (07:47→17:26)
[2021-01-01] MEDS: POLYSACCHARIDE IRON COMPLEX 150 MG CAPSULE PO ×2 (07:47→17:26)
[2021-01-01] MEDS: clonazePAM (*CRX) 0.5 MG TABLET PO ×2 (07:47→19:44)
[2021-01-01 17:25] VITALS: TEMP 36.9
[2021-01-01 19:48] VITALS: BP 120/72; PULSE 93; RESP 16; TEMP 37.1; O2SAT 98
[2021-01-02] MEDS: HYDROcodone/acetaminophen (*CRX) 5-325 MG TABLET 1 TAB PO (03:29)
[2021-01-02] MEDS: IBUPROFEN 600 MG TABLET PO (03:29)
[2021-01-02] MEDS: POLYSACCHARIDE IRON COMPLEX 150 MG CAPSULE PO (07:00)
[2021-01-02] MEDS: SIMETHICONE 80 MG TAB.CHEW PO (07:00)
[2021-01-02] MEDS: DOCUSATE SODIUM 100 MG CAPSULE PO (07:00)
[2021-01-02] MEDS: HYDROcodone/acetaminophen (*CRX) 10-325 MG TABLET 1 TAB PO (07:00)
[2021-01-02] MEDS: MULTIVIT/MIN/PREN/FOL AC/IRON TABLET 1 TAB PO (07:00)
[2021-01-02 07:40] VITALS: BP 115/76; PULSE 94; RESP 16; TEMP 37.2; O2SAT 98
[2021-01-02] MEDS: clonazePAM (*CRX) 0.5 MG TABLET PO (09:12)
[2021-01-02 10:37] VITALS: PULSE 94; RESP 16; O2SAT 98
--- NOTE | 2021-01-02 16:43 | PM.OBPNVD ---
OB - PN: Subj Subjective Date/time seen: 01/02/21 16:43 doing well no cimplaints desires home. OB - PN: Obj Data Labs CBC & Chem 7: 12/31/20 05:48 OB - PN A/P Assessment and Plan (1) Breech presentation: Code(s): O32.1XX0 - Maternal care for breech presentation, not applicable or unspecified Status: Acute Assessment and Plan: continue with pp care. Time Spent With Patient Time: Total time spent is greater than 50% in coordination of care (as documented) at patient's floor/unit and/or counseling patient: Exam Narrative: Exam Narrative: incision c/d/i ff below umbilicus
[2021-01-05 11:24] VITALS: BP 114/79; PULSE 98; RESP 16; TEMP 37; O2SAT 99
== END 2021-01-02 11:25 | disposition home or self-care (01) | DRG 788 ==
LOC: ANHLDR 09:33 → ANHOB2 14:02 → ANHLDR 01-05 10:48 → ANHOB2 01-05 10:48
PROVIDERS: Admitting Provider Obstetrics & Gynecology Gynecology; PCP Physician Assistant; Visit Provider Obstetrics & Gynecology
DX: O32.1XX0 Maternal care for breech presentation, not applicable or unspecified (principal); Z37.0 Single live birth; Z3A.38 38 weeks gestation of pregnancy; O99.214 Obesity complicating childbirth; E66.9 Obesity, unspecified
CPT/HCPCS: 36415; 85025; 86592; 86850; 86900; 86901; A9270; J0131; J1100; J1885; J2274; J2370; J2405; J2590; J3010

== ENCOUNTER → 2021-04-01 08:43 | Outpatient (CLI) | payer BC, SELFPAY ==
--- NOTE | ~2021-04-01 | US_ITS ---
US breast BI limited 04/01/2021 09:06 Indication: Palpable bilateral breast masses Procedure: High-resolution Limited bilateral breast ultrasound Comparison: No prior studies for comparison. Findings: There are multiple bilateral breast cysts corresponding to the areas of palpable concern, l argest in the periareolar location of the right breast at 10-11:00 measuring 1.7 cm. Largest on the l eft at 12:00 near the arterial measuring 2 cm. No suspicious solid masses are identified. Impression: 1: Multiple bilateral breast cysts. No sonographic evidence for malignancy. BI-RADS CATEGORY 2 - BENIGN FINDINGS Reviewed, dictated and finalized at location A. Impression: 1: Multiple bilateral breast cysts. No sonographic evidence for malignancy. BI-RADS CATEGORY 2 - BENIGN FINDINGS
== END ==
PROVIDERS: PCP Physician Assistant; Visit Provider Nurse Practitioner
DX: N60.02 Solitary cyst of left breast (principal); N60.01 Solitary cyst of right breast
CPT/HCPCS: 76642

== ENCOUNTER 2021-06-27 12:46 | Emergency (ER) | payer BC, SELFPAY ==
[2021-06-27 14:03] VITALS: BP 157/136; PULSE 76; RESP 16; TEMP 37.1; O2SAT 100
[2021-06-27] MEDS: SODIUM CHLORIDE 0.9% IV 2,000 ML 999 ML IV CONT (14:48)
[2021-06-27] MEDS: ONDANSETRON HCL ODT 4 MG TABLET PO (14:57)
[2021-06-27 15:06] LABS: Basophils Percent Auto 0.4 % (0.2-1.2); Eosinophils Percent Auto 0.3 % (0-4.4); Hematocrit 42.9 % (37.0-47.0); Hemoglobin 14.1 g/dL (12.0-15.0); Immature Granulocyte Absolute 0.04 K/mm3 (0.00-0.031); Immature Granulocyte Percent A 0.4 % (0-0.5); Lymphocytes Percent Auto 22.5 % (18.3-44.2); Mean Corpuscular HGB Conc 32.9 g/dl (32-36); Mean Corpuscular Hemoglobin 29.3 pg (26-34); Mean Corpuscular Volume 89.2 fl (80-100); Mean Platelet Volume 9.4 fl (7.4-10.4); Monocytes Absolute Auto 0.8 K/mm3 (0.1-0.6); Monocytes Percent Auto 7.5 % (2.6-8.5); Neutrophils Absolute Auto 7.4 K/mm3 (1.3-6.7); Neutrophils Percent Auto 68.9 % (45.5-73.1); Platelet Count Result 275 k/mm3 (150-375); Red Blood Count 4.81 M/mm3 (4.2-5.4); Red Cell Distribution Width 13.9 % (11.5-14.5); White Blood Count 10.7 K/mm3 (4.5-10.0)
[2021-06-27 15:15] VITALS: BP 102/69; PULSE 87; RESP 14; TEMP 36.8; O2SAT 100
[2021-06-27 15:20] LABS: Alanine Aminotransferase 15 U/L (4-35); Albumin Level 4.7 g/dL (3.5-5.1); Alkaline Phosphatase 63 U/L (38-126); Anion Gap 11 mmol/L (8-16); Aspartate Amino Transferase 20 U/L (14-36); Bilirubin,Total 0.5 mg/dL (0.2-1.3); Blood Urea Nitrogen 10 mg/dL (7-17); Calcium 9.3 mg/dL (8.4-10.2); Carbon Dioxide 26 mmol/L (22-30); Chloride 103 mmol/L (98-107); Estimated CRCL calculation 119 ml/min; Estimated Glomerular Filt Rate > 60; Glucose 86 mg/dL (65-110); Potassium 4.1 mmol/L (3.4-5.0); Sodium 140 mmol/L (137-145)
--- NOTE | 2021-06-27 15:44 | ED.GENADULT ---
HPI - General Adult General Chief complaint: Nausea/Vomiting/Diarrhea Stated complaint: 8 weeks preg, N/V Time Seen by Provider: 06/27/21 13:15 Source: patient and family Mode of arrival: ambulatory Limitations: no limitations History of Present Illness HPI narrative: Patient 30 years old white female, 8 , been nauseated for the last few weeks, got worse with vomiting over the last 4 days, yesterday patient was not able to keep anything down. Patient denies any fever, chills, abdominal pain or urinary symptoms. Patient is 2, para 1, 0 patient reports having similar symptoms with her 1st lasted for the 1st 3 months. Related Data Home Medications Medication Instructions Recorded Confirmed clonazepam 0.5 mg PO BID 05/20/20 12/30/20 Allergies Allergy/AdvReac Type Severity Reaction Status Date / Time No Known Allergies Allergy Mild Verified 06/27/21 14:08 Review of Systems Review of Systems: CONSTITUTIONAL: Denies fever, chills, or sweats. EYES: Denies visual changes, redness, or discharge. ENT: Denies rhinorrhea, congestion, sore throat, or otalgia. CARDIOVASCULAR: Denies chest pain, palpitations, or edema. RESPIRATORY: Denies cough or dyspnea. GASTROINTESTINAL: Denies abdominal pain, nausea, vomiting, or diarrhea. GENITOURINARY: Denies dysuria or hematuria. SKIN: Denies rash or itching. MUSCULOSKELETAL: Denies back pain, joint pain, or myalgia. NEUROLOGIC: Denies headache, numbness, or weakness. PSYCHIATRIC: Denies anxiety or depression. PMFSH Past Medical History Medical History Hyperekplexia Skull fracture x 3 hx subdural hematoma and subarachnoid hemorrhage no residual deficits Surgical History Surgical History Hx of shoulder surgery age 10 Family History Family History Grandparent Cancer Diabetes mellitus Social History Social History Smoking status: Never smoker Substance use: never Spiritual care concerns: No Exam Narrative: General appearance: Well-developed, well-nourished Skin: Normal color Head: Normocephalic, nontraumatic Eyes: Clear conjunctiva ENT: Oropharynx normal, ears normal, nose normal Neck: Supple, nontender Chest and respiratory: Airway patent, no respiratory distress, no accessory muscle use Heart: Regular rate/rhythm Abdomen: Soft, nontender, no organomegaly, quiet bowel sounds Vascular: Normal peripheral pulses, normal capillary refill. Musculoskeletal: Normal range of motion, nontender back Neurologic: Alert and oriented ?3, GRIEVANCE AND APPEALS COORDINATOR is normal as tested, no gross motor deficit Course Course Emergency Course: Stable Vital Signs Vital signs: Vital Signs Temperature 37.1 C 06/27/21 14:03 Pulse Rate 76 06/27/21 14:03 Respiratory Rate 16 06/27/21 14:03 Blood Pressure 157/136 H 06/27/21 14:03 Pulse Oximetry 100 06/27/21 14:03 Temperature 37.1 C 06/27/21 14:03 Pulse Rate 76 06/27/21 14:03 Respiratory Rate 16 06/27/21 14:03 Blood Pressure 157/136 H 06/27/21 14:03 Pulse Oximetry 100 06/27/21 14:03 Medical Decision Making [facility] Narrative Medical decision making narrative: Hyperemesis gravidarum is my concern. Labs ordered to rule out the possibility of electrolyte imbalance, UA to rule out the possibility of urinary tract infection. Differential Diagnosis Differential Diagnosis: Hyperemesis gravidarum, electrolyte imbalance, urinary tract infection Vital Signs Vital Signs: Vital Signs Temperature 37.1 C 06/12
[2021-06-27 17:34] LABS: Add Urine Microscopic? YES; Appearance Urine Clear (Clear); Bacteria Urine Trace /hpf; Bilirubin Urine Negative (Negative); Blood Urine Negative (Negative); Color Urine Yellow (Yellow); Glucose Urine UA Negative (Negative); Ketones Urine 2+ mg/dL (Negative); Leukocyte Esterase Ur Negative LEU/UL (Negative); Mucus Urine Moderate /lpf; Nitrate Urine Negative (Negative); Protein Urine 1+ mg/dL (Negative); Specific Grav Ur 1.026 (1.001-1.035); Squamous Epithelial Cell Urine Few /hpf (Few); Urobilinogen Urine Negative mg/dL (<2.0); WBC Urine 0-3 /hpf
[2021-06-27 18:33] VITALS: BP 106/78; PULSE 80; RESP 14; TEMP 36.9; O2SAT 97
== END 2021-06-27 18:35 | disposition home or self-care (01) ==
PROVIDERS: Emergency Provider Emergency Medicine; PCP Physician Assistant
DX: O21.0 Mild hyperemesis gravidarum (principal); Z3A.08 8 weeks gestation of pregnancy; O99.891 Other specified diseases and conditions complicating pregnancy; Q89.8 Other specified congenital malformations
CPT/HCPCS: 36415; 80053; 81001; 85025; 96360; 96361; 99283; A9270; J7030

== ENCOUNTER → 2021-07-07 10:48 | Outpatient (CLI) | payer BC, SELFPAY ==
--- NOTE | ~2021-07-07 | US_ITS ---
EXAMINATION: US OB <= 14 weeks fetus DATE: 07/07/2021 11:10 INDICATION: First trimester dating TECHNIQUE: Real-time pelvic transabdominal and transvaginal ultrasound was performed. COMPARISON: None. FINDINGS: The uterus measures 9.9 x 5.9 x 7.2 cm. There is an intrauterine gestational sac. There is a 1.4 x 0.4 x 0.8 cm hypoechoic area adjacent to the gestational sac. A yolk sac is identified. Feta l heart motion is identified measuring 171 beats per minute (bpm) by M-mode Doppler. The crown rump length measures 2.3 cm , which correlates with an estimated gestational age of 9 weeks and 0 day (s) (+/-) 6 day(s). The right ovary is not visualized however no right adnexal abnormality is seen. The left ovary measur es 1.9 x 1.3 x 1.1 cm. There is normal vascular flow in the left ovary. There is no free fluid in the pelvis. IMPRESSION: 1. Live intrauterine with an estimated gestational age of 9 weeks and 0 day(s) (+/-) 6 day( s) and an estimated delivery date of 02/09/2022. 2. Small subchorionic hematoma. Reviewed, dictated and finalized at location A. IMPRESSION: 1. Live intrauterine with an estimated gestational age of 9 weeks and 0 day(s) (+/-) 6 day(s) and an estimated delivery date of 02/09/2022. 2. Small subchorionic hematoma.
== END ==
PROVIDERS: Visit Provider Obstetrics & Gynecology Gynecology
DX: Z36.87 Encounter for antenatal screening for uncertain dates (principal); Z3A.09 9 weeks gestation of pregnancy; O36.8911 Maternal care for other specified fetal problems, first trimester, fetus 1
CPT/HCPCS: 76801

== ENCOUNTER → 2021-07-21 08:50 | Outpatient (CLI) | payer BC, SELFPAY ==
--- NOTE | ~2021-07-21 | US_ITS ---
US OB limited 07/21/2021 09:24 Indication: Follow-up subchorionic hematoma Procedure: High-resolution Limited obstetrical ultrasound Comparison: Ultrasound dated 07/07/2021 Findings: There is a single living intrauterine with heart rate of 164 BPM. There is a small subchorionic hematoma measuring 11 x 15 x 6 mm. Amniotic fluid is subjectively normal. Impression: 1: Single living intrauterine . 2: Small subchorionic hematoma. Reviewed, dictated and finalized at location A. CTOR OF EXTENSION WORK Impression: 1: Single living intrauterine . 2: Small subchorionic hematoma.
== END ==
PROVIDERS: Visit Provider Obstetrics & Gynecology Gynecology
DX: O36.8911 Maternal care for other specified fetal problems, first trimester, fetus 1 (principal); Z3A.11 11 weeks gestation of pregnancy
CPT/HCPCS: 76815

== ENCOUNTER → 2021-08-18 08:48 | Outpatient (CLI) | payer BC, SELFPAY ==
--- NOTE | ~2021-08-18 | US_ITS ---
EXAMINATION: US OB limited DATE: 08/18/2021 09:11 INDICATION: Subchorionic hematoma, second trimester TECHNIQUE: Real-time ultrasound of the pelvis was performed. The interpreting radiologist was not pre sent for the study. COMPARISON: 07/21/2021 FINDINGS: There is a single living fetus in breech presentation. The placenta is fundal and 4 cm from the internal cervical os. No persistent subchorionic hemorrhage is identified. cardiac activit y and movement are noted. heart rate is 146 beats per minute (bpm). The amniotic fluid in dex is subjectively normal. IMPRESSION: 1. Single living fetus in breech presentation. 2. No persistent subchorionic hematoma identified. Reviewed, dictated and finalized at location A. ESS RACING HANDICAPPER
== END ==
PROVIDERS: Visit Provider Nurse Practitioner
DX: O36.8911 Maternal care for other specified fetal problems, first trimester, fetus 1 (principal); Z3A.09 9 weeks gestation of pregnancy
CPT/HCPCS: 76815

== ENCOUNTER → 2021-09-17 11:17 | Outpatient (CLI) | payer BC, SELFPAY ==
--- NOTE | ~2021-09-17 | US_ITS ---
EXAMINATION: US OB /maternal detail EXAM DATE: 09/17/2021 11:49 INDICATION: Anatomy and growth. 2nd trimester. TECHNIQUE: Pelvic obstetrical transabdominal sonogram was performed by a technologist. There are mu ltiple grayscale and Doppler images available for interpretation. Comparison is made to prior examina tion from 08/18/2021. FINDINGS: There is a single fetus identified in transverse variable presentation with a heart rate of 144 beats per minute. The placenta is located in the left fundal position. There is no sonographic evidence of retroplacental hemorrhage identified. There is subjectively expected amount of amniotic f luid. Placental margin to internal cervical os distance is 6.6 cm. BIOMETRIC DATA: Biparietal diameter (BPD): 4.7 cm ----------------> 20 weeks 1 day. Head circumference (HC): 17.3 cm ----------------> 19 weeks 6 days. Abdominal circumference (AC): 15.7 cm ----------> 20 weeks 6 days. Femur length (FL): 3.2 cm --------------------------> 20 weeks 0 days. These measurements are concordant. HC/AC ratio is 1.10 (The 5th -- 95th percentile range is 1.07-1.25. Estimated weight is 349 g +/- 52 g. This is the 95th percentile when the currently reported cl inical gestation age 19 weeks 2 days, clinical estimated date of delivery (SUE-OPE) 02/09 is used. Fet al estimated gestational age based on measurements from this exam is 20 weeks 2 days, with an estimat ed date of delivery (SUE-AUA) 02/02. ANATOMIC SURVEY: The following anatomy is identified and is sonographically normal in appearance: Cerebral ventricles Cavum septum pellucidum Cerebellum Cisterna magna Nuchal fold CTL-spine Four-chamber heart Cardiac outflow tracts Diaphragm Stomach Kidneys Bladder Three-vessel cord Cord insertion Extremities Nose/lips IMPRESSION: 1. Single fetus in transverse variable presentation with heart rate 144 beats per minute. 2. Estimated weight of 349 grams, 95th percentile using the currently reported clinical gestat ion age of 19 weeks 2 days, SUE(OPE) 02/09. 3. Normal anatomy survey. Reviewed, dictated and finalized at location A. ICAL RESEARCH NURSE IMPRESSION: 1. Single fetus in transverse variable presentation with heart rate 144 beats per minute. 2. Estimated weight of 349 grams, 95th percentile using the currently re ported clinical gestation age of 19 weeks 2 days, SUE(OPE) 02/09. 3. Normal anatomy survey.
== END ==
PROVIDERS: Visit Provider Obstetrics & Gynecology Gynecology
DX: Z34.92 Encounter for supervision of normal pregnancy, unspecified, second trimester (principal); Z3A.20 20 weeks gestation of pregnancy
CPT/HCPCS: 76805

== ENCOUNTER 2022-01-21 09:29 | Outpatient (RCR) | payer BC, SELFPAY ==
[2022-01-21 10:47] VITALS: BP 122/85; PULSE 104
== END 2022-02-19 10:18 | disposition home or self-care (01) ==
LOC: ANHOBOP 09:29
PROVIDERS: PCP Physician Assistant; Visit Provider Obstetrics & Gynecology Gynecology
DX: O36.8330 Maternal care for abnormalities of the fetal heart rate or rhythm, third trimester, not applicable or unspecified (principal); Z3A.37 37 weeks gestation of pregnancy
CPT/HCPCS: 59025

== ENCOUNTER 2022-01-28 07:55 | Observation (INO) | payer BC, SELFPAY ==
[2022-01-28] MEDS: DEXTROSE 5%/LACTATED RINGERS 1,000 ML 100 ML (09:21)
[2022-01-28] MEDS: ONDANSETRON INJ 4 MG/2 ML VIAL (09:22)
--- NOTE | 2022-01-28 09:52 | OBADM ---
This patient, Marquita Orellana, admitted to the OB room Labor/Delivery/Recovery 119 for observation. Patient/family oriented to hospital policies and general routines including ID bracelet, bed and alarms, visiting hours, pain management, procedures, bathroom and other care routines, personal items, smoking policy, room service/diet, and visiting hours. Patient/Family are encouraged to report perceived risks to care and to ask questions if they do not understand what they are told or what they should do.
--- NOTE | 2022-01-31 09:30 | PM.OBTRLD ---
OB - Triage/Final Diagnosis Visit Information Reason for evaluation: threatened labor Comments/Additional reasons for admission: I have assessed the risk for this patient, Marquita Orellana, and determined that she would benefit from observation care.
== END 2022-01-28 11:30 | disposition home or self-care (01) ==
PROVIDERS: Admitting Provider Obstetrics & Gynecology Gynecology; PCP Physician Assistant; Visit Provider Obstetrics & Gynecology Gynecology
DX: O47.9 False labor, unspecified (principal); Z3A.00 Weeks of gestation of pregnancy not specified
CPT/HCPCS: 96374; G0378; G0379; J2405; J7121

== ENCOUNTER 2022-02-01 09:11 | Outpatient (CLI) | payer BC, SELFPAY ==
[2022-02-01 10:07] LABS: Hematocrit 36.1 % (37.0-47.0); Mean Corpuscular HGB Conc 30.5 g/dl (32-36); Mean Corpuscular Volume 88.7 fl (80-100); Mean Platelet Volume 11.2 fl (7.4-10.4); Platelet Count Result 239 k/mm3 (150-375); Red Blood Count 4.07 M/mm3 (4.2-5.4); Red Cell Distribution Width 13.4 % (11.5-14.5); White Blood Count 9.6 K/mm3 (4.5-10.0)
[2022-02-02 13:51] LABS: Rapid Plasma Reagin Non-Reactive (NonReactive)
== END 2022-02-01 09:12 | disposition home or self-care (01) ==
LOC: ANHLAB 09:12
PROVIDERS: PCP Physician Assistant; Visit Provider Obstetrics & Gynecology Gynecology
DX: Z01.818 Encounter for other preprocedural examination (principal)
CPT/HCPCS: 36415; 85027; 86592; 86850; 86900; 86901

== ENCOUNTER 2022-02-02 03:20 | Inpatient (IN) | payer BC, SELFPAY ==
--- NOTE | 2022-01-11 14:10 | PC.NURSE ---
Verified with OR schedule and patient--C/S on 02/02/22 at 0730 Patient given requisition for lab draw on 02/01/22
--- NOTE | 2022-02-01 23:25 | PM.IMHP ---
H&P: HPI History of Present Illness Date/Time: 02/01/22 23:25 Chief Complaint: repeat csection Narrative: The patient is a 31-year-old 2 para 1 admitted 39 weeks for repeat low-transverse section. The patient's current has been complicated by a subchorionic hematoma that did resolve. labs O positive , rubella immune, RPR negative, hepatitis-B surface antigen, negative HIV, negative group B strep negative. Review of Systems Review of Systems: not repeated day of surgery; patient states no changes in status PMFSH Past Medical History Medical History (Updated 02/01/22 @ 23:29 by Marleny Barbosa MD) Hyperekplexia Skull fracture x 3 hx subdural hematoma and subarachnoid hemorrhage no residual deficits Surgical History Surgical History (Updated 02/01/22 @ 23:29 by Marleny Barbosa MD) History of Hx of shoulder surgery age 10 Family History Family History Grandparent Cancer Diabetes mellitus Social History Social History Smoking status: Never smoker Substance use: never Spiritual care concerns: No Meds Home Medications and Allergies Home Medications Medication Instructions Recorded Confirmed Type clonazepam 0.5 mg PO BID 05/20/20 12/30/20 History ondansetron HCl [Zofran] 4 mg PO Q6H PRN #10 tablet 06/27/21 Rx aspirin [Aspirin Low Dose] 81 mg PO DAILY 01/11/22 01/11/22 History prenat.vits,gianni,[id number] 1 tablet PO HS 01/11/22 01/11/22 History Allergies Allergy/AdvReac Type Severity Reaction Status Date / Time No Known Allergies Allergy Mild Verified 01/11/22 13:46 Exam Const: General: healthy appearing and alert Orientation/consciousness: patient oriented x3 GI: GI Palp: Yes Soft to palpation, No Tenderness to palpation present (GI) and No Palpable mass present : External Female Exam: normal external appearance Speculum Exam - Vagina: normal appearance of the vagina and normal vaginal discharge Speculum Exam - Cervix: normal appearance of the cervix Bimanual exam- vagina & uterus: uterine size normal and consistency normal Bimanual Exam- Adnexa, other: normal adnexae and No adnexal tenderness Neuro: General: patient oriented x3 Assessment and Plan Assessment and plan (1) 39 weeks gestation of : Code(s): Z3A.39 - 39 weeks gestation of Status: Acute Assessment and Plan: plan to proceed with repeat section (2) History of : Code(s): Z98.891 - History of uterine scar from previous surgery Status: Inactive
[2022-02-02] VITALS (61 sets, daily range): BP systolic 84–108; BP diastolic 49–75; PULSE 60–96; RESP 13–18; TEMP 36.1–37.3; O2SAT 94–100; BMI 33.0
--- NOTE | 2022-02-02 03:30 | LDADM ---
This patient, Marquita Orellana, was admitted to Labor/Delivery/Recovery 120 on 02/02/22 at 03:20. Plans for labor, pain management and were discussed with patient. Patient/family oriented to hospital policies and general routines including ID bracelet, bed and alarms, visiting hours, pain management, procedures, bathroom and other care routines, personal items, smoking policy, room service/diet and guest tray routines, security routines, and visiting hours. Patient/Family are encouraged to report perceived risks to care and to ask questions if they do not understand what they are told or what they should do. See OBIX for further documentation.
[2022-02-02] MEDS: LACTATED RINGERS 250 ML 999 ML IVPB (04:05)
[2022-02-02] MEDS: LACTATED RINGERS 1,000 ML 125 ML IV CONT (05:55)
[2022-02-02] MEDS: ceFAZolin 2 GM/D5W 50 ML 2 GM/50 ML BAG IVPB (05:55)
--- NOTE | 2022-02-02 05:58 | WPDHPUPDATE1 ---
History and Physical Update Update Date/Time: 02/02/22 05:58 History and Physical has been reviewed, including an updated exam of the patient. There are NO changes in the patient's condition. Risks, benefits, and alternatives have been discussed and questions answered. Patient agrees to proceed with procedure. Patient arrived with SROM and trevor. Cervix changed from 2 cm to 4 cm. Patient does not want to . Once anesthesia completed epidural in other room, patient moved to OR for planned repeat csection.
--- NOTE | 2022-02-02 06:27 | P.PNAN_ITS ---
Anes - Eval Pre Procedure Procedure: Operation Date: 02/02/22 07:30 Proposed Procedures p Repeat Section - Marleny Barbosa MD Date/Time: 02/02/22 06:27 Pre Op Diagnosis: Repeat , Pre-admit Patient Data Age: 31 Gender: F Height: Weight: Allergies Allergy/AdvReac Type Severity Reaction Status Date / Time No Known Allergies Allergy Mild Verified 01/11/22 13:46 Home Medications Medication Instructions Recorded Confirmed Type clonazepam 0.5 mg tablet 0.5 mg PO BID 05/20/20 12/30/20 History ondansetron HCl 4 mg tablet 4 mg PO Q6H PRN nausea and 06/27/21 Rx (Zofran) vomiting #10 tabs aspirin 81 mg tablet,delayed 81 mg PO DAILY 01/11/22 01/11/22 History release (Aspirin Low Dose) prenat.vits,gianni,[id number]-[id number] 1 tablet PO HS 01/11/22 01/11/22 History Patient hx anesthesia problems: none Family hx anesthesia problems: none Results Review: All pre-operative results and documents have been reviewed as part of the pre- operative evaluation. [facility] Past Medical History Medical History (Updated 02/01/22 @ 23:29 by Marleny Barbosa MD) Hyperekplexia Skull fracture x 3 hx subdural hematoma and subarachnoid hemorrhage no residual deficits Surgical History Surgical History (Updated 02/01/22 @ 23:29 by Marleny Barbosa MD) History of Hx of shoulder surgery age 10 Family History Family History Grandparent Cancer Diabetes mellitus Social History Social History Smoking status: Never smoker Substance use: never Spiritual care concerns: No Exam Day of Procedure 02/02/22 06:27
--- NOTE | 2022-02-02 07:08 | P.OP_ITS ---
Procedure Note - Detailed Date of Procedure 02/02/22 Pre-op Diagnosis Repeat spontaneous rupture of membranes and labor at 39 weeks Post-op Diagnosis Same Procedure Performed Repeat low-transverse section Surgeon Marleny Barbosa MD Findings male infant weighing 6lb 8oz with Apgars of 3 [id number]. Cord noted around the shoulder. Normal-appearing tubes, ovaries, and uterus. Description of Procedure the patient is taken to the operating room after anesthesia was available. She was placed under spinal anesthesia in the dorsal supine position with a leftward tilt. when anesthesia was deemed adequate she was prepped and draped in usual sterile fashion. previous keloid scar was removed in elliptical fashion with a scalpel. The fascia was then incised in the midline with a scalpel. The incision was extended laterally using Jalloh scissors. Bleeding vessels in the subcutaneous tissue were cauterized for hemostasis. [facility] was used to tent the fascia which was then dissected off using sharp dissection due to dense adhesions. The peritoneum was entered high in the incision due to dense adhesions. The incision is extended with sharp dissection due to dense adhesions. Bovie cautery is also utilized. The bladder blade is then placed and the vesicouterine peritoneum tented and entered with Metzenbaum scissors. The incision was extended laterally and the bladder flap created digitally. The bladder blade is replaced. The lower uterine segment was incised in a transverse fashion with the scalpel. The incision is extended laterally using blunt traction. The infant's head was brought up into the incision and delivered while the dental assistant medical assistant applied fundal pressure. The infant is fully delivered. The cord is clamped and cut and detangled from around the 's arm. The placenta is removed manually due to cord avulsion. The uterus is exteriorized and cleared of all clots and debris. The uterine incision was closed using 0 Monocryl in a running locked fashion. Same suture was used to imbricate. The right angle approximately 2cm above the incision was noted to be bleeding. This required several sutures of 0 Monocryl for hemostasis. The cul-de-sac was then irrigated. The uterus is returned to the abdomen and an additional suture was required in the right angle. After observing for 2minutes the incision was noted to be hemostatic including the right angle. The fascia was then closed using 0 Vicryl in a running fashion. Subcutaneous tissues were irrigated and made hemostatic using Bovie cautery. Skin was closed using absorbable sean. Dermaflex was placed over the incision. Sponge, needle, and instrument counts are correct per the OR staff. The patient is taken to recovery in stable condition. Estimated Blood Loss 475 Drains Yes ( Woods catheter) Pathology Yes ( placenta) Condition Stable
--- NOTE | 2022-02-02 07:15 | PM.OBDSVD ---
DS: Admitting Diagnosis Discharge Date 02/04/22 Admitting Diagnosis intrauterine at 39 weeks in labor with ruptured membranes previous section DS: Discharge Diagnosis Discharge Diagnosis (1) 39 weeks gestation of : Code(s): Z3A.39 - 39 weeks gestation of Status: Acute (2) History of : Code(s): Z98.891 - History of uterine scar from previous surgery Status: Acute (3) Active labor: Status: Acute OB - DS: Summary OB Procedures : Ultrasound OB Procedures Intrapartum: low cervical, transverse OB Procedures: : None Peripartum Data Procedures: Procedures Operation Date: 02/02/22 07:30 Actual Procedure Side Surgeon p Section Marleny Barbosa MD Status at Discharge Overall status at discharge: patient is progressing back to baseline Time Spent with Patient Time attestation: Total time spent providing and/or coordinating discharge services: DS: Data Data Completed and Pending Pending studies at discharge: Pending at discharge 02/02/22 06:21 Surgical [PTH] Routine Procedures/Treatments: LTCS Discharge Plan Discharge Attending physician on discharge: Marleny Barbosa Discharging Clinician: Marleny Barbosa Patient Disposition: Home, Self-Care Activity: may shower, may drive after 2 weeks and pelvic rest Diet: regular Wound Care Instructions: incision open to air Discharge Instructions: Education: Mom and Baby Guide Given to: Mother Follow-Up: Call your delivering provider's office for an appointment to be seen in: 1 Week Mom and baby should come to the [facility] for the follow-up appointment. Appointment Date/Time: Saturday, February 05, 2022 at 8:00 am What to expect at your follow-up visit: Blood Pressure Check Physical Assessment Call [phone] if you are unable to keep your appointment time. BREAST CARE: * Wear a snug supportive bra. Bottle Feeding: * May apply ice packs ABDOMINAL INCISION: (if applicable) * Allow incision to air dry * Do NOT use lotions for powders on your incision * When showering, allow soap and water to run over the incision, but do not wash incision EPISIOTOMY/PERINEAL CARE: * Until bleeding stops, use your matilda bottle after urinating * Change your pad frequently throughout the day * You may take sitz baths several times a day (fill your bathtub with warm water and soak for 20 minutes.) Do NOT bathe in the water * No tub baths until seen by your physician - You may shower ACTIVITY: * Rest as much as possible. * Do not exercise or lift anything heavier than your baby (such as laundry or other children.) * Avoid stairs or driving as much as possible. * Do not put anything into the vagina. No douching, tampons, or sexual activity until seen by physician. NOTIFY PHYSICIAN IF YOU HAVE ANY QUESTIONS OR IF ANY OF THE FOLLOWING SYMPTOMS OCCUR: * If your incision becomes red, swollen, or more painful than what you have experienced in the hospital. * If your vaginal bleeding becomes foul smelling. * If your vaginal bleeding becomes more heavy than a period or if your bleeding changes from pink to bright red. However, you may pass an occasional walnut-sized clot once or twice for the first week . * If you experience a sharp, shooting pain in you calves. * If you discover a hard, reddened area on your breast or if you experience flu-like symptoms. DIET: * Eat regular, well-balanced meals. * Drink plenty of fluids daily. If , drink to thirst. Patient Instructions: Antibiotic Form Stand Alone Forms: General Discharge Information Follow-up/Referrals: Marleny Barbosa MD [Physician] - 1 Week (and 6 wk) Discharge Medications: New hydrocodone-acetaminophen 5-325 mg tablet 1 tablet PO Q4H PRN (Reason: pain) Qty: 30 0RF Contin
[2022-02-02] MEDS: diphenhydrAMINE HCl INJ 50 MG/ML VIAL 25 MG IV PUSH (08:29)
[2022-02-02] MEDS: OXYTOCIN 30 UNITS/NS 500 ML 30 UNITS/500 ML BAG 125 UNITS IV CONT (09:21)
--- NOTE | 2022-02-02 10:21 | OBPPTRN ---
0935 Patient transferred to post room #284 via bed. Support person present. Oriented to unit, room, information board, rooming in, admission packet and security measures. Patient verbalizes understanding.
[2022-02-02] MEDS: IBUPROFEN 600 MG TABLET PO ×2 (12:27→20:27)
[2022-02-02] MEDS: DOCUSATE SODIUM 100 MG CAPSULE PO ×2 (12:27→20:27)
[2022-02-02] MEDS: clonazePAM (*CRX) 0.5 MG TABLET PO ×2 (12:27→20:27)
[2022-02-02] MEDS: SIMETHICONE 80 MG TAB.CHEW PO (12:28)
[2022-02-02] MEDS: DEXTROSE 5%/0.45% SOD CHL 1,000 ML 125 ML IV CONT (13:42)
[2022-02-03 00:15] VITALS: BP 97/60; PULSE 80; RESP 16; TEMP 36.9; O2SAT 98
[2022-02-03] MEDS: HYDROcodone/acetaminophen (*CRX) 5-325 MG TABLET 1 TAB PO ×5 (00:35→22:35)
[2022-02-03 04:25] VITALS: BP 94/63; PULSE 88; RESP 16; TEMP 36.5; O2SAT 100
[2022-02-03] MEDS: IBUPROFEN 600 MG TABLET PO ×4 (04:45→22:35)
[2022-02-03 05:08] LABS: Basophils Percent Auto 0.2 % (0.2-1.2); Eosinophils Absolute Auto 0.1 K/mm3 (0-0.3); Eosinophils Percent Auto 0.9 % (0-4.4); Hematocrit 29.3 % (37.0-47.0); Hemoglobin 8.9 g/dL (12.0-15.0); Immature Granulocyte Absolute 0.15 K/mm3 (0.00-0.031); Immature Granulocyte Percent A 1.2 % (0-0.5); Lymphocytes Absolute Auto 2.72 K/mm3 (0.9-3.2); Lymphocytes Percent Auto 21.5 % (18.3-44.2); Mean Corpuscular HGB Conc 30.4 g/dl (32-36); Mean Corpuscular Hemoglobin 26.7 pg (26-34); Mean Platelet Volume 11.3 fl (7.4-10.4); Monocytes Absolute Auto 0.9 K/mm3 (0.1-0.6); Monocytes Percent Auto 6.9 % (2.6-8.5); Neutrophils Absolute Auto 8.8 K/mm3 (1.3-6.7); Neutrophils Percent Auto 69.3 % (45.5-73.1); Platelet Count Result 213 k/mm3 (150-375); Red Blood Count 3.33 M/mm3 (4.2-5.4); Red Cell Distribution Width 13.6 % (11.5-14.5); White Blood Count 12.7 K/mm3 (4.5-10.0)
--- NOTE | 2022-02-03 07:38 | WPDANLDPN2 ---
Anes-Prog Note L&D Date/Time: 02/03/22 07:38 Comfortable throughout: section Neuraxial method: spinal Epidural/Spinal procedure site: clean & non-tender Neuro status: Neuro function grossly intact. Cardiovascular status: normal Respiratory status: normal Airway patency: baseline Mental status: baseline Post-Op hydration status: normal Vital Signs: Last Vital Signs Temp 97.7 F 02/03/22 04:25 Pulse 88 02/03/22 04:25 Resp 16 02/03/22 04:25 BP 94/63 L 02/03/22 04:25 Pulse Ox 100 02/03/22 04:25 O2 Del Method Room Air 02/03/22 04:25 Pain score (VAS): 09/21 I/O: Intake & Output 02/02/22 02/02/22 02/03/22 15:59 23:59 07:59 Intake Total 1240 1275 Output Total 051 1350 1950 Balance 531 -[phone] -[phone] Patient feedback: Patient satisfied with anesthetic care.
--- NOTE | 2022-02-03 07:38 | WPDANLDNPN2 ---
Anes-Prog Note L&D-Neuraxial Date/Time: 02/03/22 07:38 Neuraxial medications: intrathecal PF morphine Opiod-related complaints: none Patient feedback: Patient satisfied with post-operative pain management.
[2022-02-03 08:00] VITALS: BP 107/66; PULSE 80; RESP 18; TEMP 36.4; O2SAT 100
--- NOTE | 2022-02-03 08:27 | PM.OBPNVD ---
OB - PN: Subj Subjective Date/time seen: 02/03/22 0720 OB - PN: Obj Data Labs CBC & Chem 7: 02/03/22 04:43 Labs: Laboratory Results - last 24 hr 02/03/22 04:43 WBC 12.7 H RBC 3.33 L Hgb 8.9 L Hct 29.3 L MCV 88.0 MCH 26.7 MCHC 30.4 L RDW 13.6 Plt Count 213 MPV 11.3 H Immature Gran % (Auto) 1.2 H Neut % (Auto) 69.3 Lymph % (Auto) 21.5 Towns % (Auto) 6.9 Eos % (Auto) 0.9 Baso % (Auto) 0.2 Lymph # (Auto) 2.72 Towns # (Auto) 0.9 H Eos # (Auto) 0.1 Baso # (Auto) 0.0 Abs Immat Gran (auto) 0.15 H Absolute Neuts (auto) 8.8 H Absolute Nucleated RBC 0.0 Nucleated RBC % 0.0 OB - PN A/P Plan day: 1 Plan: routine care Time Spent With Patient Time: Total time spent is greater than 50% in coordination of care (as documented) at patient's floor/unit and/or counseling patient: Review of Systems Review of Systems: All systems reviewed & are unremarkable except as noted in HPI and below Constitutional: Constitutional: Reports as per HPI ENT: Reports system reviewed and no additional complaints, except as documented Respiratory: Respiratory: Reports as per HPI Exam Const: Orientation/consciousness: patient oriented x3 Limitations: no limitations Resp: Effort & Inspection: normal respiratory effort and able to speak in complete sentences Cardio: Rate: regular rate GI: Inspection: normal to inspection : Other: Fundus firm Skin: General skin exam: normal color Other: Incision Neuro: General: patient oriented x3 Cognition (Neuro): normal cognition Speech: normal speech Psych: Appearance: grossly normal Mental Status: mental status grossly normal Speech and movement: Normal speech and movement present Affect: normal affect Attitude: cooperative Thought process: Normal thought process present
[2022-02-03] MEDS: POLYSACCHARIDE IRON COMPLEX 150 MG CAPSULE PO ×2 (09:22→15:54)
[2022-02-03] MEDS: clonazePAM (*CRX) 0.5 MG TABLET PO ×2 (09:23→17:29)
[2022-02-03] MEDS: DOCUSATE SODIUM 100 MG CAPSULE PO ×2 (09:23→15:54)
[2022-02-03 19:30] VITALS: BP 125/64; PULSE 95; RESP 16; TEMP 36.7; O2SAT 100
[2022-02-03] MEDS: SIMETHICONE 80 MG TAB.CHEW PO (19:31)
[2022-02-04] MEDS: IBUPROFEN 600 MG TABLET PO ×2 (04:11→10:34)
[2022-02-04] MEDS: HYDROcodone/acetaminophen (*CRX) 5-325 MG TABLET 1 TAB PO ×2 (04:11→10:34)
[2022-02-04 08:00] VITALS: BP 110/72; PULSE 96; RESP 18; TEMP 36.2
[2022-02-04] MEDS: SIMETHICONE 80 MG TAB.CHEW PO (08:02)
[2022-02-04] MEDS: DOCUSATE SODIUM 100 MG CAPSULE PO (08:02)
[2022-02-04] MEDS: POLYSACCHARIDE IRON COMPLEX 150 MG CAPSULE PO (08:02)
[2022-02-04] MEDS: clonazePAM (*CRX) 0.5 MG TABLET PO (08:02)
--- NOTE | 2022-02-04 08:30 | PC.NURSE ---
Patient viewed the discharge video Mother & Baby Care, The First Two Weeks . Patient was given the opportunity and encouraged to ask questions. Patient verbalized understanding of information shared and has been given the mother/baby guide for home reference.
--- NOTE | 2022-02-04 10:57 | PC.NURSE ---
Self care and infant care discharge instructions given including follow up visit date and time. Mother verbalized understanding. No questions or concerns voiced. Very pleasant and coopertative. at side.
--- NOTE | 2022-02-04 14:43 | PM.OBPNVD ---
OB - PN: Subj Subjective Date/time seen: 02/04/22 14:43 Patient comments: no complaints and pain well controlled baby status: doing well OB - PN: Obj Data Labs CBC & Chem 7: 02/03/22 04:43 OB - PN A/P Plan day: 2 Plan: routine care, discharge home and follow up 6 weeks (and 1 wk) Time Spent With Patient Time: Total time spent is greater than 50% in coordination of care (as documented) at patient's floor/unit and/or counseling patient: Exam Narrative: inc c/d/i : Bimanual exam- vagina & uterus: other (Uterus firm, nt @U)
[2022-02-05 07:48] VITALS: BP 122/81; PULSE 92; RESP 20; TEMP 37.3; O2SAT 99
== END 2022-02-04 12:37 | disposition home or self-care (01) | DRG 788 ==
LOC: ANHLDR 07:19 → ANHOB2 09:57
PROVIDERS: Admitting Provider Obstetrics & Gynecology Gynecology; PCP Physician Assistant; Visit Provider Obstetrics & Gynecology Gynecology
PROC: 10D00Z1 Extraction of Products of Conception, Low, Open Approach (ICD-10-PCS; CPT 59514; principal; 2022-02-02 07:30)
DX: O34.211 Maternal care for low transverse scar from previous cesarean delivery (principal); Z37.0 Single live birth; Z3A.39 39 weeks gestation of pregnancy; O69.82X0 Labor and delivery complicated by other cord entanglement, without compression, not applicable or unspecified; O69.89X0 Labor and delivery complicated by other cord complications, not applicable or unspecified
CPT/HCPCS: 36415; 85025; 85027; 86592; 86850; 86900; 86901; 88307; A9270; J0131; J0690; J1200; J2274; J2370; J2590; J7120

== ENCOUNTER 2024-08-19 09:02 | Emergency (ER) | payer BC, SELFPAY ==
--- NOTE | 2024-08-19 09:08 | ED.EYEPROB ---
HPI - Eye Problem General Chief complaint: Eye Problems Stated complaint: [place] [facility]/Strep Symptoms Time Seen by Provider: 08/19/24 09:11 History of Present Illness HPI Narrative: 33-year-old female presented for complaint of sore throat and bilateral eye redness and discharge over the last 2 days. Reports a fever up to 100.5 today. States the eyes were crusted shut this morning. Endorses her son tested positive for strep throat 5 days ago. Denies nasal congestion, cough, nausea, vomiting, diarrhea or lethargy Related Data Home Medications Medication Instructions Recorded Confirmed clonazepam 0.5 mg tablet 0.5 mg PO BID 05/20/20 08/19/24 ergocalciferol (vitamin D2) 1,250 50,000 unit PO WEEKLY 02/02/22 08/19/24 mcg (50,000 unit) capsule Allergies Allergy/AdvReac Type Severity Reaction Status Date / Time No Known Allergies Allergy Mild Verified 08/19/24 09:10 Review of Systems Review of Systems: CONSTITUTIONAL: Denies body aches, fever, chills, or sweats. EYES: Denies visual changes, reports redness, discharge. ENT: Reports sore throat Denies rhinorrhea, congestion, or otalgia. CARDIOVASCULAR: Denies chest pain, palpitations, or edema. RESPIRATORY: Denies dyspnea. GASTROINTESTINAL: Denies abdominal pain, nausea, vomiting, or diarrhea. SKIN: Denies rash MUSCULOSKELETAL: Denies back pain, joint pain, or myalgia. NEUROLOGIC: Denies headache PMFSH Past Medical History Medical History Hyperekplexia Skull fracture x 3 hx subdural hematoma and subarachnoid hemorrhage no residual deficits Surgical History Surgical History History of Hx of shoulder surgery age 10 Family History Family History Grandparent Cancer Diabetes mellitus Social History Social History Smoking status: Never smoker Substance use: never Spiritual care concerns: No Exam Narrative: GENERAL: mildly Ill-appearing, no acute distress. EYES: Bilateral conjunctival injection, purulent drainage. no swelling. PERRLA, EOMI ENT: Mucous membranes moist. TMs pearly berman with normal light reflex bilaterally; no tragal tenderness. Oropharynx erythematous without lesions. Tonsils enlarged and without exudate. No drooling, no hoarseness, no trismus, uvula midline. No tripod positioning, hot potato voice, or soft palate swelling. NECK: Supple. No lymphadenopathy CHEST: Clear to auscultation, breath sounds equal. No respiratory distress, speaks in full sentences. HEART: Regular rate and rhythm. No murmur heard. SKIN: Warm, dry, no rash. NEURO: Alert and oriented x3. Course Course Emergency Course: Patient is aware of diagnosis, understands and agrees to treatment plan. Anticipatory guidance given. Patient agrees to follow-up as directed and is aware of reasons to seek care at the emergency department. Portions of this record may have been created with voice recognition software Level of Care: Express Care Visit MDM - Eye Problem MDM Narrative Medical decision making narrative: Negative strep. Discussed physical exam findings. Advised supportive measures and signs/symptoms to go to the ER. Pt is appropriate for outpt treatment and f/u. Differential Diagnosis Differential diagnosis: Likely corneal abrasion, conjunctivitis, periorbital cellulitis, corneal ulcer and ruptured globe Discharge Plan Discharge Clinical Impression: Bacterial conjunctivitis, Pharyngitis Patient Disposition: Home, Self-Care Condition: Stable Instructions: Antibiotic Form, Strep Throat (ED), Conjunctivitis (ED) Additional Instructions: Rapid strep swab was negative today You can call the office in 2 days to get the results of your strep test if symptoms are due to a viral illness, it is not treated with antibiotics. Viral symptoms can be present for up to 10-14 days. Recommendations: -Eat and drink things that are easy to swallow, like soft foods, cool liquids, tea with honey, or popsicles . -Salt water gargles and/or may use topical anesthetic ( Chloraseptic spray) or lozenges to relieve dryness or throat pain. Soft foods, cool liquids, warm tea. -Alternate Tylenol and ibuprofen as needed for pain and fever as directed. -Frequent hand washing or hand director of scientific research is one of the best ways to prevent spread of infection. Throw away the toothbrush after 24hours of antibiotic. Follow up with primary care provider in 2-3 days if condition is not improving Go to the ER if you have trouble breathing, cannot drink enough fluids, have muffled voice or drooling, difficulty opening your mouth, or severe swelling. Prescriptions: New amoxicillin 500 mg tablet 1,000 mg PO DAILY 10 Days Qty: 20 0RF polymyxin B sulf-trimethoprim 10,000 unit- 1 mg/mL drops 1 drp EACH EYE Q3H 7 Days Qty: 10 0RF Rx Instructions: while awake; do not exceed 6 doses in 24 hours No Action ergocalciferol (vitamin D2) 1,250 mcg (50,000 unit) capsule 50,000 unit PO WEEKLY clonazepam 0.5 mg Tablet 0.5 mg PO BID Follow-up/Referrals: Randolph,LASHONDA Be [Primary Care Provider] - Stand Alone Forms: Work/School Release IP
[2024-08-19 09:11] VITALS: BP 115/77; PULSE 75; RESP 16; TEMP 36.8; O2SAT 96
[2024-08-19 09:16] VITALS: BP 115/77; PULSE 75; RESP 16; TEMP 36.8; O2SAT 96
[2024-08-19 09:25] LABS: EDSTREPNEGPOS1 Negative (Negative)
== END 2024-08-19 09:33 | disposition home or self-care (01) ==
PROVIDERS: Emergency Provider Nurse Practitioner Family; PCP Physician Assistant
DX: H10.9 Unspecified conjunctivitis (principal); J02.9 Acute pharyngitis, unspecified
CPT/HCPCS: 87081; 87880; 99213; G0463